=== PATIENT | male | born 1990 ===

== ENCOUNTER → 2018-04-12 | Day surgery (SDC) | payer OTHER ==
[~2018-04-12] VITALS: Ht 172.7 cm; Wt 84.8 kg
[~2018-04-12] MED LIST: ASCO500C9 PO; BUPIVAC MPF-EPI 0.5%-1:200000 30 ML VIAL. ONE; DEXAMETHASONE SOD PHOS 20 MG/5 ML VIAL. ONE; HYDROmorphone 2 MG/ML VIAL IV PRN; IV RINGERS,LACTATED 1000ML 1,000 ML IV ONE; IV RINGERS,LACTATED 1000ML 1,000 ML IV SCH; LIDOCAINE 1% PF 2 ML VIAL. ID PRN; LIDOCAINE 2% PF Vial for OR 5 ML VIAL. ONE; MIDAZOLAM HCL/PF 2 MG/2 ML VIAL. ONE; MORPHINE SULFATE 2 MG/ML VIAL. IV PRN; OMEG1CAP29 PO; ONDANSETRON PF 4 MG/2 ML VIAL. IV PRN; ONDANSETRON PF 4 MG/2 ML VIAL. ONE; OXYC1TAB15 PO; PROCHLORPERAZINE 10 MG/2 ML VIAL. IV PRN; PROPOFOL 20 ML IV ONE; SUCCINYLCHOLINE 200 MG/10 ML VIAL. ONE; fentaNYL PF VIAL 100 MCG/2 ML VIAL IV PRN; fentaNYL PF VIAL 100 MCG/2 ML VIAL ONE; oxyCODONE/APAP 5/325 1 TAB TABLET PO ONE
--- NOTE | 2018-04-12 08:39 | PDOC4 ---
Operative Note Operative Note Date: 04/12/2018 Preoperative diagnosis: Pilonidal cyst Postoperative diagnosis: Same Procedure: Pilonidal cystectomy Surgeon: Slade Specimen: Pilonidal cyst Dictation: Patient is 28-year-old male who's complained of a painful lump in the buttock cleft for several months he has had 1 episode of infection which was treated with antibiotic but ever since then has had a painful lump. Procedure of pilonidal cystectomy was explained to the patient in detail was benefits were also discussed including bleeding infection alternatives to this procedure also discussed with the patient who seemed understanding table verbal and written consent to have the procedure performed. Patient was taken to the operating room placed in supine position general anesthesia was initiated once patient was sleeping in bed is then repositioning in the prone position and is buttocks was prepped and draped in usual sterile fashion using ChloraPrep and area around the pilonidal cyst was injected with quarter percent Marcaine with epinephrine and elliptical incision was made with a 15 blade scalpel was carried down through the subcutaneous tissues using electrocautery divide hemostasis down to the fascia cyst was completely excised and sent for pathology. The wound was closed in 2 layers a deep layer running 0 Vicryl and the skin was reapproximated with 3-0 nylon and a horizontal mattress suture fashion. 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 FLORENCE WISE MD Apr 12, 2018 08:39
--- NOTE | 2018-04-12 08:40 | DISCH ---
DISCHARGE INSTRUCTIONS Condition on Discharge Condition on Discharge: Stable Activity After Discharge Activity Instructions for Disc: Avoid exertion Other activity instructions: no sitting directly on incision for 2 weeks Wound Incision Care Other wound/incision instructi: May shower in 24 hours Contacting the after DC Call your doctor for: If your condition worsens Follow-Up Follow up with: Dr. Wise in 2 weeks FLORENCE WISE MD Apr 12, 2018 08:40
[2018-04-12 10:00] VITALS: BP 116/63
--- NOTE | 2018-04-16 09:09 | PATHOLOGY ---
[facility] Accession Number: [id number] . 01 Material submitted: . PILONIDAL CYST . 01 Clinical history: . Pilonidal cyst . 02 Diagnosis: Skin and subcutaneous tissue, pilonidal cystectomy: - Pilonidal abscess / sinus. . (JPM:mml; 04/15/18) [facility]/04/15/2018 . 02 Electronically signed: . Paul Rodriguez MD, Pathologist NPI- [id number] . 01 Gross description: . The specimen is received in formalin, labeled "Jeromy Brand, pilonidal cyst". Received is a segment of yellow-moreno fibroadipose tissue with attached pale moreno skin measuring 4.8 x 2.4 x 1.8 cm in greatest dimensions. The epidermal surface displays a linear furrow measuring 2.0 cm in length. Sectioning reveals a possible unilocular cystic structure measuring 0.8 cm in maximum dimensions containing light moreno friable material. The remainder of the specimen displays bright yellow, lobulated cut surfaces. The entire possible cystic structure submitted in cassettes A1 and A2. (CAA; 04/14/2018) QAC/QAC . 02 Pathologist provided ICD-10: L05.01 . 02 CPT . 559798 Specimen Comment: A courtesy copy of this report has been sent to Specimen Comment: [phone]. Specimen Comment: Report sent to Performed at: 01 [facility] [address], [place] [id number] MD Shahriar Tejeda MD Phone: [phone] Performed at: 02 [facility] [address] [place], [place] [id number] MD Paul Rodriguez MD Phone: [phone]
== END | disposition home or self-care (01) ==
LOC: SURG 06:24
PROVIDERS: ATTEND Surgery
DX: L05.01 Pilonidal cyst with abscess (principal); I10 Essential (primary) hypertension; Z79.2 Long term (current) use of antibiotics; Z79.899 Other long term (current) drug therapy; Z98.890 Other specified postprocedural states; Z72.89 Other problems related to lifestyle
CPT/HCPCS: 11771; 88304; A7015; J0330; J0690; J1100; J2001; J2250; J2405; J2704; J3010; J3490; J7120